=== PATIENT | female | born 1960 | race Caucasian/White ===

== ENCOUNTER → 2024-04-19 13:48 | Outpatient (REF) | payer MEDICARE, BC, SELFPAY | LOC: RAD 13:48 | PROVIDERS: ATTENDING PHYSICIAN Internal Medicine Endocrinology, Diabetes & Metabolism; FAMILY PHYSICIAN Family Medicine | DX: Z78.0 Asymptomatic menopausal state (principal) | CPT/HCPCS: 77080 ==

== ENCOUNTER → 2024-05-29 11:22 | Outpatient (REF) | payer MEDICARE, BC, SELFPAY | LOC: WDC 11:22 | PROVIDERS: FAMILY PHYSICIAN Family Medicine | DX: Z12.31 Encounter for screening mammogram for malignant neoplasm of breast (principal) | CPT/HCPCS: 77063; 77067 ==

== ENCOUNTER → 2024-06-24 13:01 | Outpatient (REF) | payer MEDICARE, BC, SELFPAY | LOC: RAD 13:01 | PROVIDERS: ATTENDING PHYSICIAN Podiatrist; FAMILY PHYSICIAN Family Medicine | DX: M84.48XA Pathological fracture, other site, initial encounter for fracture (principal); M77.9 Enthesopathy, unspecified | CPT/HCPCS: 73630 ==

== ENCOUNTER → 2025-06-03 11:18 | Outpatient (REF) | payer MEDICARE, BC, SELFPAY | LOC: WDC 11:18 | PROVIDERS: ATTENDING PHYSICIAN Obstetrics & Gynecology; FAMILY PHYSICIAN Family Medicine | DX: Z12.31 Encounter for screening mammogram for malignant neoplasm of breast (principal) | CPT/HCPCS: 77063; 77067 ==